=== PATIENT | male | born 1955 | race Caucasian/White ===

== ENCOUNTER 2018-07-27 16:15 | Emergency (ER) | payer OTHER ==
[~2018-07-27] VITALS: Ht 188 cm; Wt 163.3 kg
[2018-07-27] MEDS ORDERED: NORVASC10 MG PO (16:33)
[2018-07-27] MEDS ORDERED: CLONIDINE HCL0.2 M2 PO (16:33)
[2018-07-27] MEDS ORDERED: HYDRALAZINE 2525 MG PO (16:34)
[2018-07-27] MEDS ORDERED: XANAX 0.25 MG0.25 MG PO (16:35)
[2018-07-27] MEDS ORDERED: SPIRONOLACTONE25 M1 PO (16:35)
[2018-07-27] MEDS ORDERED: FLONASE 0.05%50 MCG NASAL (16:36)
[2018-07-27] MEDS ORDERED: MULTIPLE VITAM1 EAC4 PO (16:36)
[2018-07-27] MEDS ORDERED: ELIQUIS5 MG PO (16:37)
[2018-07-27] MEDS ORDERED: CARVEDILOL25 MG PO (16:37)
[2018-07-27 16:51] LABS: ABSOLUTE BASOPHILS 0.1 thou/uL (0.0-0.2); ABSOLUTE EOSINOPHILS 0.1 thou/uL (0.0-0.7); ABSOLUTE LYMPHOCYTES 1.8 thou/uL (0.8-5.3); ABSOLUTE MONOCYTES 0.9 thou/uL (0.0-1.2); ABSOLUTE NEUTROPHILS 5.6 thou/uL (1.6-8.1); BASOPHILS 0.7 %; EOSINOPHILS 1.7 %; HEMATOCRIT 29.4 % (42.0-52.0); LYMPHOCYTES 21.5 %; MCHC 30.5 g/dL (28.0-37.0); MCV 65.7 fL (80.0-100.0); MPV 8.6 fl. (7.2-11.1); NUCLEATED RBCS 0 /100WBC; PLATELET COUNT* 330 thou/uL (150-400); POLYS 65.1 %; RBC 4.47 mil/uL (4.50-6.00); RDW-CV 20.2 % (10.5-14.5); WBC 8.5 thou/uL (4.0-11.0)
[2018-07-27 16:59] LABS: APTT 33.2 Seconds (25.0-31.3); INR 1.1; PROTIME 11.3 Seconds (9.20-11.50)
[2018-07-27 17:00] LABS: CALCIUM 8.7 mg/dL (8.5-10.1); POTASSIUM 4.2 mmol/L (3.5-5.1)
[2018-07-27 17:05] LABS: ALBUMIN 3.9 g/dL (3.4-5.0); TOTAL BILIRUBIN 1.5 mg/dL (<0.1-1.0); TOTAL PROTEIN 7.9 g/dL (6.4-8.2)
[2018-07-27 17:25] VITALS: BP 164/59
[2018-07-27 17:40] LABS: MICROCYTES 3+; OVALOCYTES 1+
[2018-07-27 17:41] LABS: ANISOCYTOSIS 2+; HYPOCHROMASIA 3+; PLATELET ESTIMATE ADEQUATE; POLYCHROMASIA Occasional
== END 2018-07-27 17:25 | disposition home or self-care (01) ==
LOC: M.ERS 16:15
PROVIDERS: Nurse Practitioner Family
DX: D64.9 Anemia, unspecified (principal); I10 Essential (primary) hypertension; Z90.49 Acquired absence of other specified parts of digestive tract

== ENCOUNTER → 2018-07-27 | Outpatient (CLI) | payer OTHER ==
[2018-07-26 16:52] LABS: HEMATOCRIT 22.4 % (42.0-52.0)
[2018-07-26 17:38] LABS: HEMOGLOBIN 6.6 gm/dL (14.0-18.0)
[~2018-07-27] MED LIST: CARVEDILOL25 MG PO; CLONIDINE HCL0.2 M2 PO; ELIQUIS5 MG PO; FLONASE 0.05%50 MCG NASAL; HYDRALAZINE 2525 MG PO; MULTIPLE VITAM1 EAC4 PO; NORVASC10 MG PO; SPIRONOLACTONE25 M1 PO; XANAX 0.25 MG0.25 MG PO
[2018-07-27 09:35] VITALS: BP 106/50; BP 108/70; BP 126/64
--- NOTE | 2018-07-27 09:47 | NUR ---
ARRIVED AMBULATORY. MADE SELF COMFORTABLE. DIFFICULT IV START. TRANSFUSION EDUCATION REVIEWED. CONSENT SIGNED. TRANSFUSION STARTED AND RUNNING WELL.
[2018-07-27 11:48] VITALS: BP 124/72; BP 126/64; BP 126/74; BP 128/79
--- NOTE | 2018-07-27 14:33 | NUR ---
TRANSFUSION COMPLETED AND TOLERATED WELL. PT WAITING 2 HOURS HERE IN INFUSION FOR POST TRANSFUSION [facility] THAT WAS ORDERED. LUNCH PROVIDED. STATED FEELING MUCH BETTER. DENIES CURRENT QUESTIONS OR NEEDS.
[2018-07-27 15:50] LABS: HEMATOCRIT 26.1 % (42.0-52.0); HEMOGLOBIN 7.8 gm/dL (14.0-18.0); MCH 19.9 pg (26.0-34.0); MCHC 30.1 g/dL (28.0-37.0); MCV 66.1 fL (80.0-100.0); MPV 8.5 fl. (7.2-11.1); RBC 3.94 mil/uL (4.50-6.00); RDW-CV 19.9 % (10.5-14.5); WBC 6.7 thou/uL (4.0-11.0)
--- NOTE | 2018-07-27 15:51 | NUR ---
POST [facility] DRAWN 2 HOURS AFTER STOP. DISCHARGE INSTRUCTION REVIEWED. LAST SET OF V/S 1552 BP-122/60 HR-55 R-16 TEMP-98.3 DENIES QUESTIONS OR NEEDS AT DISCHARGE.
--- NOTE | 2018-07-27 16:15 | NUR ---
1600 FINAL LABS RESULTS, [facility] CALLED TO ORDERING DOCTOR. STATE THEY WILL CONTACT PT WITH FURTHER INSTRUCTION.
== END ==
LOC: M.INFUS 08:41
PROVIDERS: Nurse Practitioner
DX: D64.9 Anemia, unspecified (principal); E61.1 Iron deficiency; N18.3 Chronic kidney disease, stage 3 (moderate)